=== PATIENT | female | born 1960 | race Caucasian/White ===

== ENCOUNTER 2016-04-10 22:12 | Emergency (ER) | payer MEDICARE, BC ==
[2016-04-10] MEDS ORDERED: SODIUM CHLORIDE 0.9% 1,000 ML IV STA (22:56)
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
--- NOTE | 2016-04-10 23:34 | XR ---
EXAMINATION TYPE: XR chest 2V DATE OF EXAM: 04/10/2016 11:26 PM COMPARISON: 03/12/2016 HISTORY: Dysrhythmia TECHNIQUE: Frontal and lateral views of the chest are obtained. FINDINGS: Heart and mediastinum are normal. Lungs are clear. Diaphragm is normal. Bony thorax is int act. There are chest leads. IMPRESSION: Normal chest. No change.
[2016-04-10 23:37] LABS: Basophils % (A) 0 %; CH 31.7; CHCM 34.7; Eosinophils # (A) 0.2 k/uL (0-0.7); Eosinophils % (A) 2 %; HCT 38.7 % (34.0-46.0); HDW 2.65; HGB 13.2 gm/dL (11.4-16.0); Luc # (Auto) 0.18; Luc % (Auto) 2; Lymphocytes # (A) 1.8 k/uL (1.0-4.8); Lymphocytes % (A) 19 %; MCH 31.2 pg (25.0-35.0); MCHC 34.1 g/dL (31.0-37.0); MCV 91.5 fL (80.0-100.0); Mean Platelet Volume 6.9; Monocytes # (A) 0.4 k/uL (0-1.0); Monocytes % (A) 4 %; Neutrophils # (A) 6.6 k/uL (1.3-7.7); Neutrophils % (A) 72 %; RBC 4.23 m/uL (3.80-5.40); RDW 12.1 % (11.5-15.5); WBC 9.1 k/uL (3.8-10.6)
[2016-04-10 23:50] LABS: ALT 43 U/L (9-52); AST 18 U/L (14-36); Alkaline Phosphatase 74 U/L (38-126); Anion Gap 10 mmol/L; Blood Urea Nitrogen 14 mg/dL (7-17); Calcium 9.2 mg/dL (8.4-10.2); Carbon Dioxide 25 mmol/L (22-30); Chloride 108 mmol/L (98-107); Glucose 106 mg/dL (74-99); Magnesium 2.2 mg/dL (1.6-2.3); Non-African American GFR(MDRD) >60 (>60 ml/min/1.73 sqM); Potassium 3.8 mmol/L (3.5-5.1); Sodium 143 mmol/L (137-145); Total Bilirubin 0.3 mg/dL (0.2-1.3); Total Protein 6.4 g/dL (6.3-8.2)
[2016-04-10 23:54] LABS: Partial Thromboplastin Time 23.7 sec (22.0-30.0); Prothrombin Time 9.8 sec (9.0-12.0)
[2016-04-11 00:14] LABS: Creatine Kinase 39 U/L (30-135)
[2016-04-11 00:27] LABS: Creatine Kinase MB <0.2 ng/mL (0.0-2.4); Troponin I <0.012 ng/mL (0.000-0.034)
[2016-04-11 02:46] VITALS: RESP 18
[2016-04-11 02:47] VITALS: BP 133/68; PULSE 77; TEMP 97.9
== END 2016-04-11 01:35 | disposition home or self-care (01) ==
LOC: EC 22:12
DX: I49.3 Ventricular premature depolarization (principal); R00.2 Palpitations; M32.9 Systemic lupus erythematosus, unspecified; M35.00 Sjogren syndrome, unspecified; E03.9 Hypothyroidism, unspecified; Z88.6 Allergy status to analgesic agent; Z88.1 Allergy status to other antibiotic agents; Z88.5 Allergy status to narcotic agent; Z88.0 Allergy status to penicillin; Z88.8 Allergy status to other drugs, medicaments and biological substances; Z91.048 Other nonmedicinal substance allergy status; Z79.82 Long term (current) use of aspirin; Z87.891 Personal history of nicotine dependence; Z79.899 Other long term (current) drug therapy
CPT/HCPCS: 36415; 71020; 80053; 82550; 82553; 83735; 84443; 84484; 85025; 85610; 85730; 96360; 99285

== ENCOUNTER 2016-04-26 06:05 | Day surgery (SDC) | payer MEDICARE, BC ==
[~2016-04-26 06:05] MED LIST: SODIUM CHLORIDE 0.9% 1,000 ML IV SCH
[2016-04-26] MEDS ORDERED: SCOPOLAMINE 1.5MG/72HR PATCH TRANSDERM ONE (06:23)
[2016-04-26] MEDS ORDERED: ONDANSETRON 4 MG/2 ML VIAL IVP ONE (06:23)
[2016-04-26] MEDS ORDERED: fentaNYL (PF) 50 MCG/ML 2 ML AMP IV PRN (06:23)
[2016-04-26] MEDS ORDERED: MIDAZOLAM 2 MG/2 ML VIAL IV PRN ×2 (06:23→07:49)
[2016-04-26] MEDS ORDERED: LACTATED RINGERS 1,000 ML IV SCH ×2 (06:23→08:00)
[2016-04-26] MEDS ORDERED: DEXAMETHASONE SOD PHOSPHATE 10 MG/ML 1 ML VIAL IV ONE (06:23)
[2016-04-26] MEDS ORDERED: VECURONIUM 10 MG VIAL IV ONE (07:39)
[2016-04-26] MEDS ORDERED: ISOPROTERENOL 250 MCG/1.25 ML SYR IV ONE (07:39)
[2016-04-26] MEDS ORDERED: NEOSTIGMINE 1 MG/ML 10 ML VIAL ONE (07:39)
[2016-04-26] MEDS ORDERED: PROPOFOL 10 MG/ML 20 ML VIAL IV ONE (07:39)
[2016-04-26] MEDS ORDERED: SUCCINYLCHOLINE CHLORIDE 100 MG/5 ML SYR IV ONE (07:39)
[2016-04-26] MEDS ORDERED: ONDANSETRON 4 MG/2 ML VIAL ONE (07:39)
[2016-04-26] MEDS ORDERED: GLYCOPYRROLATE 0.2 MG/ML 2 ML VIAL ONE (07:39)
[2016-04-26] MEDS ORDERED: fentaNYL (PF) 50 MCG/ML 2 ML AMP ONE (07:39)
[2016-04-26] MEDS ORDERED: MIDAZOLAM 2 MG/2 ML VIAL ONE (07:39)
[2016-04-26] MEDS ORDERED: DEXAMETHASONE SOD PHOS (MDV) 100 MG/10 ML VIAL ONE (07:39)
[2016-04-26] MEDS ORDERED: HYDROmorphone (PF) 1 MG/ML ONE (07:39)
[2016-04-26] MEDS ORDERED: diphenhydrAMINE 50 MG/ML 1 ML VIAL ONE (07:39)
[2016-04-26] MEDS ORDERED: LIDOCAINE 2% INJ 20 MG/ML SQ ONE ×2 (08:28)
[2016-04-26] MEDS ORDERED: HEPARIN SODIUM (1,000 UNIT/ML) 1,000 UNIT in SODIUM CHLORIDE 0.9% 1,000 ML IRRIGATION ONE (09:50)
[2016-04-26] MEDS ORDERED: HYDROcodone/APAP 5-325MG 1 EACH TAB PO PRN (11:38)
[2016-04-26] MEDS ORDERED: ACETAMINOPHEN IV (For NPO) 1,000 MG in EMPTY BAG 1 BAG IVPB ONE (11:38)
[2016-04-26] MEDS ORDERED: ACETAMINOPHEN TAB 325 MG TAB PO PRN (11:38)
[2016-04-26] MEDS ORDERED: ALPRAZolam 0.25 MG TAB PO PRN (11:42)
--- NOTE | 2016-04-26 13:08 | CE ---
DATE OF SERVICE: A 55-year-old female who has a history of wide complex tachycardia consistent with septal RVOT VT, fast, very symptomatic who was brought in for an EP study and ablation. Patient was brought to the EP Lab in a fasting state. Written informed consent was obtained prior to the procedure. The right and left groins were prepped and draped as per protocol and venous sheaths were placed in the right and left femoral veins. Diagnostic catheters in the high right atrium, HIS bundle area, and RV were placed. Baseline measurements were as follows: Sinus cycle length 736 ms, AZ interval 146 ms, QRS 101 ms, QT 384 ms. Baseline AH interval was 86 ms, Baseline HV interval was 37 ms. Sinus node recovery times at pacing cycle ( ) at 978 ms corresponding, corrected sinus recovery was normal. A right bundle branch block aberrancy was noted with atrial pacing as well as when the patient was on Isuprel and when the patient went into atrial fibrillation. Straight pacing from the atrial pacing would result in induction of atrial fibrillation. This happened repeatedly and of there was one very long episodes of at least 10 minutes before the patient spontaneously converted to sinus rhythm. In all cases, the patient did convert spontaneously to sinus rhythm. Detailed study was performed from the right ventricle, ventricular extrastimulation up to double extrastimuli and burst stimulation was performed in the baseline state during high-dose Isuprel, during abruptly turning Isuprel and washout. No sustained ventricular tachycardia could be induced despite repeated extrastimulation and burst stimulation from the right ventricle on and off Isuprel, and during sinus rhythm as well as during atrial fibrillation. Only one PVC which resembled her clinical PVCs and VT was induced on Isuprel. This PVC was captured on the [employer] system for future mapping. The patient was noninducible despite a fairly aggressive EP study protocol on and off Isuprel. Therefore, a single isolated PVC which resembled her clinical arrhythmia was mapped. An intracardiac echo catheter was placed and the right ventricular outflow tract was anaerobically mapped and 3-D mapping of the RVOT was performed. The pulmonic valve was identified and tagged. A detailed mapping of the septum was performed with intracardiac echo. A detailed paced mapping was performed along the septum of the RVOT just below the pulmonic valve. On the posterior septal aspect, paced mapping revealed concordance of greater than 96% with a clinical PVC. An RF ablation at this site resulted in induction of VT which is similar to the clinical VT followed by termination. Good contact force and a power of 35 lujan was used on the septum, it then irrigated the contact force catheter and that localized area around the best paced map was successfully ablated. On intracardiac echo, the muscle in this area appeared to be thicker than the other areas on the septum. Patient tolerated the procedure well without any acute complications. The mapping and ablation part of the procedure was performed under general anesthesia since the patient has sleep apnea. In addition to improve stability, mapping and ablation was performed during short periods of apnea. This resulted in delivery of very effective ablations. Patient tolerated the procedure well without any acute complications. PLAN: Stop sotalol and start flecainide 50 mg twice daily instead and recommend we discontinue up to 3 months.
--- NOTE | 2016-04-26 13:12 | LTR ---
April 26, 2016 RE: HolcombLucie Dear Dr. Jaeger. I had the pleasure of seeing Lucie Holcomb in electrophysiology followup. She was admitted in the month of February with long runs of nonsustained ventricular tachycardia originating from the right ventricular outflow tract. However, during the EP study, the tachycardia was noninducible and only a single PVC could be induced. This single PVC was carefully mapped with paced mapping and at greater than 96% concordance was obtained. This site successfully ablated. During ablation, she started experiencing runs of ventricular tachycardia which we then terminated. Hopefully, this should take care of her clinical ventricular tachycardia. I have stopped sotalol and I have started flecainide 50 mg twice daily. This may be discontinued in about 3 months. She will continue all other cardiac medications and follow up with you and Dr. Floyd as before. Sincerely, BAM TORRES MD
[2016-04-26] MEDS ORDERED: FLECAINIDE 50 MG TAB PO STA (15:33)
[2016-04-26 18:49] VITALS: BMI 29.7
[2016-04-26] MEDS: FLECAINIDE 50 MG TAB PO SCH (20:56)
[2016-04-26] MEDS ORDERED: ATENOLOL 25 MG TAB PO SCH (21:00)
[2016-04-27] MEDS ORDERED: LEVOTHYROXINE 75 MCG TAB PO SCH (06:30)
[2016-04-27 08:11] VITALS: BP 111/57; PULSE 57; RESP 18; TEMP 98.2
--- NOTE | 2016-04-27 08:51 | DS ---
DATE OF ADMISSION: 04/26/2016 DATE OF DISCHARGE: Lucie Holcomb is a 55-year-old female who has a history of fast RVOT VT with intolerance to low dose sotalol. She was brought in for a diagnostic EP study. The detailed diagnostic EP study revealed: 1. Very easily inducible atrial fibrillation, nonclinical problem at this time, spontaneous conversion but definitely of duration greater than 5 to 10 minutes at each time. 2. Only a single clinical PVC was induced with Isuprel and program stimulation. Nonsustained ventricular tachycardia and frequent PVCs and couplets as well as sustained VT could not be induced despite a very detailed EP protocol. 3. Likely obstructive sleep apnea, just prior to mapping and ablation the patient was intubated to maintain catheter stability. Post procedure, she has done well. She denies any chest discomfort. No undue shortness of breath. Blood pressure is 108/59 mmHg, pulse rate is in the 80s. She did have a short nonsustained run of nonsustained VT, but this time it was a lot slower, but she did feel it. Today her 12-lead ECG shows sinus mechanism with some ST depression. She denies any chest discomfort. On examination, there is no pericardial rub. The SC interval is not depressed either. She denies any dizziness or lightheadedness at this time. She looks very comfortable. I had a very detailed discussion with her regarding the EP study and I would recommend: 1. A 2-D echo Doppler study to assess the pericardium and the LV and RV function prior to discharge. 2. Stop sotalol and start flecainide 50 mg twice daily while continuing atenolol. 3. Continue antihypertensive therapy. She will follow up with Dr. Floyd in a week. She will picker packer a Holter monitor that day. She will get a 12-lead ECG that day. She requested sleep apnea assessment. I put in a consult to that effect. She will be discharged home later today as long as her groin has healed well. So far, there is no oozing or bleeding from the groin. There is no hematoma and the groins are minimally tender.
[2016-04-27] MEDS ORDERED: ASPIRIN 81 MG CHEW PO SCH (09:00)
[2016-04-27] MEDS ORDERED: LOSARTAN 50 MG TAB PO SCH (09:00)
[2016-04-27] MEDS: FLECAINIDE 50 MG TAB PO SCH (09:31)
--- NOTE | 2016-04-27 09:52 | ECHOF ---
Referral Reason:R/O pericardial effuion MEASUREMENTS -------- HEIGHT: 175.3 cm WEIGHT: 91.2 kg BP: 108/59 RVIDd: 2.7 cm (< 3.3) IVSd: 0.9 cm (0.6 - 1.1) LVIDd: 4.2 cm (3.9 - 5.3) LVPWd: 1.1 cm (0.6 - 1.1) IVSs: 1.7 cm LVIDs: 2.9 cm LVPWs: 1.6 cm LA Diam: 3.8 cm (2.7 - 3.8) LAESV Index (A-L): 33.43 ml/m Ao Diam: 2.8 cm (2.0 - 3.7) AV Cusp: 2.2 cm (1.5 - 2.6) LA Diam: 3.2 cm (2.7 - 3.8) MV EXCURSION: 17.701 mm (> 18.000) MV EF SLOPE: 86 mm/s (70 - 150) EPSS: 0.5 cm MV E Ck: 0.98 m/s MV DecT: 181 ms MV A Ck: 0.91 m/s MV E/A Ratio: 1.08 RAP: 5.00 mmHg RVSP: 30.39 mmHg FINDINGS -------- Sinus rhythm. This was a technically good study. Left ventricular wall thickness is normal. Overall left ventricular systolic function is normal with, an EF between 55 - 60 %. The right ventricle is normal in size. LA is midly dilated 29-33ml/m2. The right atrium is normal in size. The aortic valve is trileaflet and appears structurally normal. The mitral valve leaflets are mildly thickened. Mild mitral annular calcification present. There is trace mitral regurgitation. Mild tricuspid regurgitation present. Right ventricular systolic pressure is normal at < 35 mmHg. Pulmonic valve appears structurally normal. The aortic root size is normal. Normal inferior vena cava with normal inspiratory collapse consistent with estimated right atrial pressure of 5 mmHg. There is no pericardial effusion. CONCLUSIONS -------- 1. Sinus rhythm. 2. Mild mitral annular calcification present. 3. There is trace mitral regurgitation. 4. Mild tricuspid regurgitation present. 5. Right ventricular systolic pressure is normal at < 35 mmHg. 6. Pulmonic valve appears structurally normal. 7. The aortic root size is normal. 8. There is no pericardial effusion. 9. This was a technically good study. 10. Left ventricular wall thickness is normal. 11. Overall left ventricular systolic function is normal with, an EF between 55 - 60 %. 12. The right ventricle is normal in size. 13. LA is midly dilated 29-33ml/m2. 14. The right atrium is normal in size. 15. The aortic valve is trileaflet and appears structurally normal. 16. The mitral valve leaflets are mildly thickened. B[employer]ING CLEANER: Suellen Herbert RDCS
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
== END 2016-04-27 13:00 | disposition home or self-care (01) ==
LOC: CATHEP 06:05 → 3OBS 10:57 → CATHEP 04-27 13:00
PROVIDERS: ATTEND Internal Medicine Clinical Cardiac Electrophysiology
DX: I47.2 Ventricular tachycardia (principal); I48.91 Unspecified atrial fibrillation; I49.3 Ventricular premature depolarization; I08.1 Rheumatic disorders of both mitral and tricuspid valves; R06.83 Snoring; G47.10 Hypersomnia, unspecified; E66.9 Obesity, unspecified; Z68.31 Body mass index [BMI] 31.0-31.9, adult; I10 Essential (primary) hypertension; M35.00 Sjogren syndrome, unspecified; E07.9 Disorder of thyroid, unspecified; Z85.850 Personal history of malignant neoplasm of thyroid; F41.9 Anxiety disorder, unspecified; Z82.49 Family history of ischemic heart disease and other diseases of the circulatory system; Z79.82 Long term (current) use of aspirin; Z79.899 Other long term (current) drug therapy; Z88.1 Allergy status to other antibiotic agents; Z88.5 Allergy status to narcotic agent; Z88.0 Allergy status to penicillin; Z88.8 Allergy status to other drugs, medicaments and biological substances; Z91.048 Other nonmedicinal substance allergy status; Z87.891 Personal history of nicotine dependence
CPT/HCPCS: 93306; 93623; 93662; 93654; C1894 ×2; C1769 ×3; C1730 ×2; C1759; C1732; J2001; J1644

== ENCOUNTER 2016-05-02 20:41 | Emergency (ER) | payer MEDICARE, BC ==
[2016-05-02] MEDS ORDERED: SODIUM CHLORIDE 0.9% 1,000 ML IV STA (21:31)
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
[2016-05-02 21:52] LABS: Basophils # (A) 0.1 k/uL (0-0.2); Basophils % (A) 1 %; CH 31.6; CHCM 34.8; Eosinophils # (A) 0.2 k/uL (0-0.7); Eosinophils % (A) 3 %; HCT 39.8 % (34.0-46.0); HGB 13.5 gm/dL (11.4-16.0); Luc # (Auto) 0.18; Luc % (Auto) 3; Lymphocytes # (A) 2.2 k/uL (1.0-4.8); Lymphocytes % (A) 32 %; MCH 30.9 pg (25.0-35.0); MCHC 33.9 g/dL (31.0-37.0); MCV 91.2 fL (80.0-100.0); Mean Platelet Volume 7.6; Monocytes # (A) 0.4 k/uL (0-1.0); Monocytes % (A) 6 %; Neutrophils # (A) 3.9 k/uL (1.3-7.7); Neutrophils % (A) 57 %; RBC 4.36 m/uL (3.80-5.40); RDW 12.3 % (11.5-15.5); WBC 6.9 k/uL (3.8-10.6); WBC (Perox) 6.86
[2016-05-02 22:01] LABS: INR 0.9 (<1.1); Partial Thromboplastin Time 23.4 sec (22.0-30.0); Prothrombin Time 9.4 sec (9.0-12.0)
--- NOTE | 2016-05-02 22:04 | XR ---
EXAMINATION TYPE: XR chest 1V portable DATE OF EXAM: 05/02/2016 9:59 PM COMPARISON: 04/10/2016 HISTORY: Dysrhythmia TECHNIQUE: Single frontal view of the chest is obtained. FINDINGS: Heart and mediastinum are normal. Lungs are clear. Diaphragm is normal. There are chest le ads. Bony thorax is intact. IMPRESSION: Normal chest. No change.
[2016-05-02 22:06] LABS: ALT 50 U/L (9-52); AST 22 U/L (14-36); Alkaline Phosphatase 76 U/L (38-126); Anion Gap 13 mmol/L; Blood Urea Nitrogen 14 mg/dL (7-17); Calcium 10.2 mg/dL (8.4-10.2); Carbon Dioxide 25 mmol/L (22-30); Chloride 105 mmol/L (98-107); Glucose 91 mg/dL (74-99); Magnesium 2.2 mg/dL (1.6-2.3); Non-African American GFR(MDRD) >60 (>60 ml/min/1.73 sqM); Potassium 4.1 mmol/L (3.5-5.1); Sodium 143 mmol/L (137-145); Total Bilirubin 0.4 mg/dL (0.2-1.3)
[2016-05-02 22:27] LABS: Creatine Kinase MB 0.4 ng/mL (0.0-2.4); Troponin I 0.013 ng/mL (0.000-0.034)
[2016-05-02 22:51] VITALS: BP 144/62; PULSE 68; RESP 16; TEMP 98
== END 2016-05-02 23:05 | disposition home or self-care (01) ==
LOC: EC 20:41
DX: R00.2 Palpitations (principal); M32.9 Systemic lupus erythematosus, unspecified; E07.9 Disorder of thyroid, unspecified; M35.00 Sjogren syndrome, unspecified; Z79.82 Long term (current) use of aspirin; Z79.899 Other long term (current) drug therapy; Z88.0 Allergy status to penicillin; Z88.1 Allergy status to other antibiotic agents; Z88.5 Allergy status to narcotic agent; Z88.8 Allergy status to other drugs, medicaments and biological substances; F41.9 Anxiety disorder, unspecified; Z87.891 Personal history of nicotine dependence
CPT/HCPCS: 36415; 71010; 80053; 82550; 82553; 83735; 84439; 84443; 84481; 84484; 85025; 85610; 85730; 93005; 99285

== ENCOUNTER 2016-05-11 15:34 | Observation (INO) | payer MEDICARE, BC ==
[2016-05-11] MEDS ORDERED: SODIUM CHLORIDE 0.9% 1,000 ML IV STA (16:05)
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
[2016-05-11 16:18] LABS: Basophils % (A) 1 %; CH 31.1; CHCM 34.4; Eosinophils # (A) 0.1 k/uL (0-0.7); Eosinophils % (A) 2 %; HCT 40.3 % (34.0-46.0); HDW 2.54; HGB 13.6 gm/dL (11.4-16.0); Luc # (Auto) 0.11; Luc % (Auto) 2; Lymphocytes # (A) 1.7 k/uL (1.0-4.8); Lymphocytes % (A) 26 %; MCH 30.5 pg (25.0-35.0); MCHC 33.7 g/dL (31.0-37.0); MCV 90.7 fL (80.0-100.0); Mean Platelet Volume 6.9; Monocytes # (A) 0.3 k/uL (0-1.0); Monocytes % (A) 4 %; Neutrophils # (A) 4.3 k/uL (1.3-7.7); Neutrophils % (A) 66 %; RBC 4.44 m/uL (3.80-5.40); RDW 12.2 % (11.5-15.5); WBC 6.5 k/uL (3.8-10.6); WBC (Perox) 6.81
[2016-05-11 16:27] LABS: ALT 39 U/L (9-52); AST 21 U/L (14-36); Alkaline Phosphatase 65 U/L (38-126); Anion Gap 11 mmol/L; Blood Urea Nitrogen 14 mg/dL (7-17); Calcium 9.3 mg/dL (8.4-10.2); Carbon Dioxide 26 mmol/L (22-30); Chloride 105 mmol/L (98-107); Glucose 89 mg/dL (74-99); Magnesium 2.1 mg/dL (1.6-2.3); Non-African American GFR(MDRD) >60 (>60 ml/min/1.73 sqM); Phosphorous 3.5 mg/dL (2.5-4.5); Potassium 4.2 mmol/L (3.5-5.1); Sodium 142 mmol/L (137-145); Total Bilirubin 0.4 mg/dL (0.2-1.3); Total Protein 6.8 g/dL (6.3-8.2)
[2016-05-11 16:28] LABS: Partial Thromboplastin Time 24.9 sec (22.0-30.0); Prothrombin Time 9.9 sec (9.0-12.0)
[2016-05-11 16:44] LABS: Creatine Kinase 40 U/L (30-135)
[2016-05-11 16:57] LABS: Creatine Kinase MB <0.2 ng/mL (0.0-2.4); Troponin I <0.012 ng/mL (0.000-0.034)
--- NOTE | 2016-05-11 17:07 | XR ---
EXAMINATION TYPE: XR chest 2V DATE OF EXAM: 05/11/2016 4:51 PM COMPARISON: May 02, 2016 HISTORY: Weakness TECHNIQUE: Frontal and lateral views of the chest are obtained. FINDINGS: There is no focal air space opacity, pleural effusion, or pneumothorax seen. The cardiac silhouette size is within normal limits. The osseous structures are intact. IMPRESSION: No acute process.
[2016-05-11] MEDS ORDERED: NITROGLYCERIN SL TABS 0.4 MG TAB SUBLINGUAL PRN (17:54)
[2016-05-11] MEDS ORDERED: ASPIRIN 81 MG CHEW PO STA (17:54)
[2016-05-11] MEDS ORDERED: LORazepam 2 MG/ML SYRINGE IV PRN (17:55)
[2016-05-11] MEDS ORDERED: LORazepam 2 MG/ML SYRINGE IV STA (17:55)
[2016-05-11] MEDS: SODIUM CHLORIDE 0.9% 1,000 ML IV SCH (18:21)
[2016-05-11 19:23] VITALS: RESP 16
[2016-05-11] MEDS ORDERED: PSYLLIUM HUSK 100% 6 GM PACKET PO SCH (21:00)
[2016-05-11] MEDS ORDERED: ATENOLOL 50 MG TAB PO SCH (21:00)
[2016-05-11] MEDS ORDERED: MAGNESIUM OXIDE 400 MG TAB PO SCH (21:00)
[2016-05-11] MEDS ORDERED: ASPIRIN 81 MG CHEW PO SCH (21:00)
[2016-05-11 21:19] VITALS: BMI 29.2
[2016-05-11] MEDS ORDERED: KETOROLAC 30 MG/ML 1 ML VIAL IVP PRN (21:32)
[2016-05-11] MEDS: DOCUSATE 100 MG CAP PO SCH (22:05)
[2016-05-11] MEDS: FLECAINIDE 50 MG TAB PO SCH (22:06)
[2016-05-11 22:25] LABS: Creatine Kinase 28 U/L (30-135)
[2016-05-11 22:38] LABS: Creatine Kinase MB <0.2 ng/mL (0.0-2.4); Troponin I <0.012 ng/mL (0.000-0.034)
[2016-05-12] MEDS ORDERED: KETOROLAC 30 MG/ML 1 ML VIAL IVP SCH
[2016-05-12 04:54] LABS: Cholesterol 114 mg/dL (<200); HDL Cholesterol 40 mg/dL (40-60); Triglycerides 65 mg/dL (<150)
[2016-05-12 05:03] LABS: Creatine Kinase 25 U/L (30-135)
[2016-05-12 05:16] LABS: Creatine Kinase MB <0.2 ng/mL (0.0-2.4); Troponin I <0.012 ng/mL (0.000-0.034)
[2016-05-12] MEDS: SODIUM CHLORIDE 0.9% 1,000 ML IV SCH (06:10)
[2016-05-12] MEDS ORDERED: LEVOTHYROXINE 137 MCG TAB PO SCH (06:30)
[2016-05-12] MEDS ORDERED: SPIRONOLACTONE 25 MG TAB PO SCH (09:00)
[2016-05-12] MEDS ORDERED: LOSARTAN 50 MG TAB PO SCH (09:00)
[2016-05-12] MEDS ORDERED: ASPIRIN 325 MG TAB PO SCH (09:00)
[2016-05-12] MEDS: FLECAINIDE 50 MG TAB PO SCH (09:12)
[2016-05-12] MEDS: DOCUSATE 100 MG CAP PO SCH (09:13)
--- NOTE | 2016-05-12 09:42 | CONS ---
DATE OF CONSULTATION: Mrs. Holcomb is a 55-year-old female who presented with evidence of palpitations. Patient has a known history of right ventricular outflow tract, ventricular tachycardia and underwent ablation on April 26. Yesterday she felt palpitation on and off, because of that, she got concerned, anxious and she felt a little bit dizzy. Came into the emergency room and subsequently admitted. She denies any chest pain. Her breathing is stable. She denies any syncope. No clear PND, orthopnea, or significant peripheral edema. She has underwent a cardiac catheterization in February that revealed no evidence of obstructive coronary artery disease. She has no PND, orthopnea, or peripheral edema. Her coronary risk factors are remarkable for hypertension. She is a nonsmoker, nondiabetic. Her medications include aspirin, atenolol 50 mg daily, flecainide 50 mg twice a day, losartan 100 mg daily, spironolactone 25 mg daily. REVIEW OF SYSTEMS: RESPIRATORY SYSTEM: No recent wheezing. No cough. No history of documented obstructive lung disease. GI SYSTEM: No recent GI bleeding. No peptic ulcer disease. SYSTEM: No dysuria or hematuria. NERVOUS SYSTEM: No stroke or seizure. PHYSICAL EXAMINATION: A 55-year-old female, alert, oriented, in no apparent distress. Blood pressure 115/70 with a heart rate in the 60s. HEAD: Normocephalic. EYES: Sclerae nonicteric. NECK: Good upstroke. No bruit. No jugular venous distention. LUNGS: Clear to auscultation. HEART: Regular rate and rhythm. S1, S2, no S3, no S4, no murmur or rub. ABDOMEN: Soft, nontender, positive bowel sounds. No organomegaly. EXTREMITIES: No edema. Intact distal pulses. Lab data revealed a troponin of less than 0.012. BUN and creatinine 14 and 0.72. Potassium 4.2. Hemoglobin of 13.6. EKG sinus mechanism, normal axis and intervals. Normal electrocardiogram. IMPRESSION: 1. Palpitation with no evidence of arrhythmia. 2. Prior ablation for right ventricle outflow tract, ventricular tachycardia. 3. Inducible atrial fibrillation, but no evidence of recurrence. 4. Hypertension. RECOMMENDATION: Patient will be discharged home today. She will undergo an event monitor in the office as an outpatient and she will be followed as scheduled. Thank you for this consult. Will follow with you.
[2016-05-12] MEDS ORDERED: ACETAMINOPHEN TAB 325 MG TAB PO PRN (12:43)
[2016-05-12 15:50] VITALS: BP 122/69; PULSE 72; TEMP 97
[2016-05-12] MEDS ORDERED: ASPIRIN 81 MG CHEW PO SCH (21:00)
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
== END 2016-05-12 16:45 | disposition home or self-care (01) ==
LOC: EC 15:34 → 3OBS 17:54
PROVIDERS: ADMIT Internal Medicine; ATTEND Internal Medicine
DX: I47.2 Ventricular tachycardia (principal); E89.0 Postprocedural hypothyroidism; M32.9 Systemic lupus erythematosus, unspecified; F41.9 Anxiety disorder, unspecified; I10 Essential (primary) hypertension; M35.00 Sjogren syndrome, unspecified; Z79.82 Long term (current) use of aspirin; Z79.899 Other long term (current) drug therapy; Z88.1 Allergy status to other antibiotic agents; Z88.5 Allergy status to narcotic agent; Z88.0 Allergy status to penicillin; Z88.8 Allergy status to other drugs, medicaments and biological substances; Z91.048 Other nonmedicinal substance allergy status; Z87.891 Personal history of nicotine dependence; Z82.49 Family history of ischemic heart disease and other diseases of the circulatory system
CPT/HCPCS: 96374; 96361 ×2; 99285; 36415; 93005; 80061; 80053; 82550 ×2; 82553 ×2; 83735; 84100; 84484 ×2; 85025; 85610; 85730; 71020; G0378 ×2; J2060

== ENCOUNTER 2016-06-07 22:31 | Observation (INO) | payer MEDICARE, BC ==
[2016-06-07] MEDS ORDERED: SODIUM CHLORIDE 0.9% 1,000 ML IV STA (22:39)
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
--- NOTE | 2016-06-07 23:45 | XR ---
EXAM: XR Chest, 2 Views. CLINICAL HISTORY: Reason: Chest Pain TECHNIQUE: Frontal and lateral views of the chest. COMPARISON: Chest radiograph on 05/11/2016 FINDINGS: Hardware: None. Lungs/pleura: Normal. No focal consolidation. No pleural effusion or pneumothorax. Heart/mediastinum: Normal. No cardiomegaly. Soft tissues: Unremarkable. Bones: No acute fracture. Mild dextroconvex curvature of the thoracic spine. Upper abdomen: Cholecystectomy clips in the right upper quadrant. IMPRESSION: No acute disease.
[2016-06-08 00:29] LABS: Basophils % (A) 1 %; CH 30.6; CHCM 34.2; Eosinophils # (A) 0.1 k/uL (0-0.7); Eosinophils % (A) 2 %; HCT 38.6 % (34.0-46.0); HDW 2.53; HGB 12.7 gm/dL (11.4-16.0); Luc # (Auto) 0.18; Luc % (Auto) 3; Lymphocytes % (A) 31 %; MCH 29.7 pg (25.0-35.0); MCV 89.9 fL (80.0-100.0); Mean Platelet Volume 7.1; Monocytes # (A) 0.4 k/uL (0-1.0); Monocytes % (A) 6 %; Neutrophils # (A) 3.9 k/uL (1.3-7.7); Neutrophils % (A) 59 %; RBC 4.29 m/uL (3.80-5.40); RDW 12.6 % (11.5-15.5); WBC 6.6 k/uL (3.8-10.6); WBC (Perox) 6.76
[2016-06-08 00:39] LABS: INR 0.9 (<1.1); Partial Thromboplastin Time 24.6 sec (22.0-30.0); Prothrombin Time 9.6 sec (9.0-12.0)
[2016-06-08 00:46] VITALS: RESP 16
[2016-06-08 00:49] LABS: ALT 45 U/L (9-52); AST 25 U/L (14-36); Alkaline Phosphatase 71 U/L (38-126); Anion Gap 11 mmol/L; Blood Urea Nitrogen 14 mg/dL (7-17); Calcium 9.6 mg/dL (8.4-10.2); Carbon Dioxide 25 mmol/L (22-30); Chloride 106 mmol/L (98-107); Glucose 101 mg/dL (74-99); Magnesium 2.1 mg/dL (1.6-2.3); Non-African American GFR(MDRD) >60 (>60 ml/min/1.73 sqM); Potassium 4.2 mmol/L (3.5-5.1); Sodium 142 mmol/L (137-145); Total Bilirubin 0.3 mg/dL (0.2-1.3); Total Protein 6.7 g/dL (6.3-8.2)
[2016-06-08 00:55] LABS: Creatine Kinase 45 U/L (30-135)
[2016-06-08] MEDS ORDERED: NITROGLYCERIN SL TABS 0.4 MG TAB SUBLINGUAL PRN (01:02)
[2016-06-08 01:08] LABS: Creatine Kinase MB 0.2 ng/mL (0.0-2.4); Troponin I <0.012 ng/mL (0.000-0.034)
[2016-06-08] MEDS ORDERED: LORazepam 2 MG/ML SYRINGE IV STA (01:51)
[2016-06-08] MEDS ORDERED: LORazepam 2 MG/ML SYRINGE IV PRN (01:51)
[2016-06-08] MEDS: ACETAMINOPHEN TAB 325 MG TAB PO PRN ×2 (02:27→11:01)
[2016-06-08 07:05] LABS: Creatine Kinase 35 U/L (30-135)
[2016-06-08 07:16] LABS: Creatine Kinase MB <0.2 ng/mL (0.0-2.4); Troponin I <0.012 ng/mL (0.000-0.034)
[2016-06-08] MEDS ORDERED: ALPRAZolam 0.25 MG TAB PO PRN (10:22)
[2016-06-08] MEDS ORDERED: SPIRONOLACTONE 25 MG TAB PO SCH (10:30)
[2016-06-08] MEDS ORDERED: LOSARTAN 50 MG TAB PO SCH (10:30)
[2016-06-08] MEDS ORDERED: FLECAINIDE 50 MG TAB PO SCH (10:30)
[2016-06-08] MEDS ORDERED: LEVOTHYROXINE 137 MCG TAB PO SCH (12:00)
--- NOTE | 2016-06-08 12:13 | EST ---
DATE OF SERVICE: 06/08/2016 AGE: 55Y SEX: F HT: 69 WT: 200 lbs. Protocol Darno: X Other: Stage: Dur. of Exercise: 8 minutes *Heart Rate Blood Pressure *Rest: 78 Rest: 116/71 * *Max. Achieved: 137 Maximum BP: 158/68 85% PMHR: 140 100% PMHR: 165 *METS: 8.7 INDICATIONS: Palpitations. MEDICATIONS: Baseline rhythm is sinus mechanism, rate of 78, normal axis and intervals, normal electrocardiogram. Baseline blood pressure 116/71 mmHg. Patient exercised on Daron protocol for 8 minutes reaching peak rate of 137 beats per minute which is equal to 82% maximum predicted heart rate. Peak blood pressure 158/68 mmHg. Test was terminated secondary to fatigue. There was no chest pain. Electrocardiograph monitoring revealed no evidence of arrhythmia. A lot of artifact was noted during the tracings so evaluation of her ST segment could not be done, but there was no evidence of arrhythmia. CONCLUSION: 1. Average exercise tolerance. 2. No evidence of arrhythmia. 3. Poor baseline during exercise but no evidence to suggest significant ischemia. 4. This test was suboptimal in quality.
[2016-06-08 13:50] LABS: Creatine Kinase 37 U/L (30-135)
[2016-06-08 14:02] LABS: Creatine Kinase MB <0.2 ng/mL (0.0-2.4); Troponin I <0.012 ng/mL (0.000-0.034)
--- NOTE | 2016-06-08 14:26 | CONS ---
DATE OF CONSULTATION: Patient is known to our group, follows with my associate, Dr. Floyd. Because of the history of V. tach, patient underwent cardiac catheterization in February, found to have no coronary artery disease. Subsequently, patient had an EP study done by Dr. Carter, only able to get one PVC induced in the right ventricle which was ablated with improvement in symptoms and patient comes in this time with history of recurrent palpitations but patient was off the event monitor recently. So far we do not see any cardiac arrhythmias in the hospital itself. Patient is known to have hypertension. Current medications at the present time, patient EKGs are normal, enzymes have been normal. Will do stress test, if stress test is normal, patient will go home on the same current medications, which include alprazolam 0.25 mg p.o. b.i.d. p.r.n., aspirin 81 mg, spironolactone 25 mg, atenolol 50 mg p.o. at bedtime, magnesium, Slow-Mag 64 mg p.o. daily, levothyroxine 137 mcg p.o. daily, Metamucil 6 gm daily. Patient was also previously on flecainide 50 mg every 12 hours, probably will continue that. Patient is allergic to ADHESIVE TAPE, BIAXIN, GABAPENTIN, PLAQUENIL, PENICILLIN, PILOCARPINE and MORPHINE. Patient's past history remarkable for thyroid problems, lupus, Sjogren's syndrome, anxiety, hypothyroidism. Patient is a former smoker. Physical examination revealed well-developed, well-nourished 55-year-old female not in acute distress, oriented x3 with a pulse rate of 77 beats per minute and regular, blood pressure of 126/72, respirations of 16. Head normocephalic. HEENT unremarkable. Neck is supple. No thyroid enlargement. No bruit noted. Good carotid upstroke bilaterally. Chest is symmetrical. CARDIAC EXAMINATION: Regular rate and rhythm, S1 and S2. Lungs are clinically clear to auscultation and percussion. Abdomen is soft, no organomegaly. Active bowel sounds. EXTREMITIES: Peripheral pulses. No pedal edema. [employer] examination grossly within normal limits. Patient will continue current medications which include atenolol 50 mg p.o. daily, Flecainide 50 mg p.o. b.i.d., and losartan 100 mg p.o. daily, levothyroxine 137 mcg p.o. daily and spironolactone 25. Patient will have a stress test. If the stress test does not show any cardiac arrhythmias, patient may go home on current medications. Follow with Dr. Carter.
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
[2016-06-08 15:34] VITALS: BP 108/56; PULSE 68; TEMP 97.6
[2016-06-08] MEDS ORDERED: PSYLLIUM HUSK 100% 6 GM PACKET PO SCH (21:00)
[2016-06-08] MEDS ORDERED: ASPIRIN 81 MG CHEW PO SCH (21:00)
[2016-06-08] MEDS ORDERED: MAGNESIUM OXIDE 400 MG TAB PO SCH (21:00)
[2016-06-08] MEDS ORDERED: ATENOLOL 50 MG TAB PO SCH (21:00)
[2016-06-09] MEDS ORDERED: LEVOTHYROXINE 137 MCG TAB PO SCH (06:30)
[2016-06-09] MEDS ORDERED: ASPIRIN 325 MG TAB PO SCH (09:00)
== END 2016-06-08 17:06 | disposition home or self-care (01) ==
LOC: EC 22:31 → 3OBS 06-08 01:02
PROVIDERS: ADMIT Internal Medicine Geriatric Medicine; ATTEND Internal Medicine Geriatric Medicine
DX: R00.2 Palpitations (principal); I47.2 Ventricular tachycardia; F41.1 Generalized anxiety disorder; R55 Syncope and collapse; E03.9 Hypothyroidism, unspecified; I10 Essential (primary) hypertension; R07.9 Chest pain, unspecified; M32.9 Systemic lupus erythematosus, unspecified; M35.00 Sjogren syndrome, unspecified; F41.9 Anxiety disorder, unspecified; Z79.899 Other long term (current) drug therapy; Z79.82 Long term (current) use of aspirin; Z88.1 Allergy status to other antibiotic agents; Z88.5 Allergy status to narcotic agent; Z88.0 Allergy status to penicillin; Z88.8 Allergy status to other drugs, medicaments and biological substances; Z91.048 Other nonmedicinal substance allergy status; Z87.891 Personal history of nicotine dependence; Z80.7 Family history of other malignant neoplasms of lymphoid, hematopoietic and related tissues; Z82.49 Family history of ischemic heart disease and other diseases of the circulatory system; Z82.0 Family history of epilepsy and other diseases of the nervous system
CPT/HCPCS: 96361; 99285; 36415; 93005; 93017; 80053; 82550; 82553; 83735; 84484; 85025; 85610; 85730; 71020; G0378; J2060

== ENCOUNTER → 2016-11-16 | Outpatient (CLI) | payer MEDICARE, BC | END | disposition home or self-care (01) | LOC: LABWHC1 14:00 | PROVIDERS: ATTEND Internal Medicine Endocrinology, Diabetes & Metabolism | DX: E03.9 Hypothyroidism, unspecified (principal) | CPT/HCPCS: 36415; 84443 ==